=== PATIENT | female | born 1970 | race Caucasian/White ===

== ENCOUNTER 2016-11-24 01:32 | Emergency (ER) | payer OTHER | END 2016-11-24 03:30 | disposition left against medical advice (07) | LOC: ER1 01:32 | DX: R05 Cough (principal); R50.9 Fever, unspecified; M79.1 Myalgia; R11.10 Vomiting, unspecified; I10 Essential (primary) hypertension; J44.9 Chronic obstructive pulmonary disease, unspecified; F17.210 Nicotine dependence, cigarettes, uncomplicated; Z88.2 Allergy status to sulfonamides; Z90.49 Acquired absence of other specified parts of digestive tract; Z79.899 Other long term (current) drug therapy | CPT/HCPCS: 99283 ==

== ENCOUNTER 2020-10-06 20:14 | Emergency (ER) | payer OTHER ==
[~2020-10-06 20:14] MED LIST: BENADRYL 50MG C50 MG PO; DELSYM30 MG/5 ML PO; EPIPEN 2-P0.3 MG/0.3 INJ; EXPECTORANT200 MG PO; FLONASE 0.05% N16 GM; IBUPROFEN600 MG PO; PREDNISONE 50 M50 MG PO; PREDNISONE10 MG PO; PROVENTIL HFA6.7 GM INH; TAMIFLU75 MG PO; TESSALON PERLE100 MG PO; ZITHROMAX1 GM PO; ZOFRAN4 MG PO
== END 2020-10-06 22:30 | disposition left against medical advice (07) ==
LOC: ER1 20:14
DX: R05 Cough (principal); R11.10 Vomiting, unspecified; R07.9 Chest pain, unspecified; Z53.21 Procedure and treatment not carried out due to patient leaving prior to being seen by health care provider

== ENCOUNTER 2021-01-05 22:45 | Emergency (ER) | payer OTHER | END 2021-01-06 02:00 | disposition home or self-care (01) | LOC: ER1 22:45 | DX: Z20.822 Contact with and (suspected) exposure to COVID-19 (principal); Z88.2 Allergy status to sulfonamides; Z90.49 Acquired absence of other specified parts of digestive tract; F17.210 Nicotine dependence, cigarettes, uncomplicated; G43.909 Migraine, unspecified, not intractable, without status migrainosus | CPT/HCPCS: 99283; U0002 ==

== ENCOUNTER 2021-09-28 18:39 | Emergency (ER) | payer OTHER | END 2021-09-28 19:11 | disposition home or self-care (01) | LOC: ER1 18:39 | DX: R05.9 Cough, unspecified (principal); Z20.822 Contact with and (suspected) exposure to COVID-19; I10 Essential (primary) hypertension; Z88.2 Allergy status to sulfonamides; F17.200 Nicotine dependence, unspecified, uncomplicated | CPT/HCPCS: 99283; U0003 ==

== ENCOUNTER 2021-10-24 18:05 | Emergency (ER) | payer OTHER ==
[2021-10-24 20:23] LABS: HEMOGLOBIN 15.3 gm/dl (12.3-15.3); RED BLOOD COUNT 4.56 M/UL (4.00-5.10); WHITE BLOOD COUNT 10.9 K/UL (4.5-11.0)
[2021-10-24 20:54] LABS: BUN/CREATININE RATIO 15 (0-10)
== END 2021-10-24 22:32 | disposition home or self-care (01) ==
LOC: ER1 18:05
PROVIDERS: Physician Assistant
DX: N20.0 Calculus of kidney (principal); K76.0 Fatty (change of) liver, not elsewhere classified; R10.9 Unspecified abdominal pain; I10 Essential (primary) hypertension; F17.200 Nicotine dependence, unspecified, uncomplicated; E78.5 Hyperlipidemia, unspecified; G43.909 Migraine, unspecified, not intractable, without status migrainosus; Z88.2 Allergy status to sulfonamides; Z90.49 Acquired absence of other specified parts of digestive tract; Z90.710 Acquired absence of both cervix and uterus
CPT/HCPCS: 80053; 81001; 85025; 96372; 99284; J1885